=== PATIENT | female | born 1955 | race Caucasian/White ===

== ENCOUNTER 2016-07-08 14:57 | Inpatient (IN) | payer BC ==
[~2016-07-08] VITALS: Ht 163.2 cm; Wt 102.5 kg
[2016-07-19] MEDS ORDERED: MULTCAP2 PO (12:14)
[2016-07-19] MEDS ORDERED: CYAN1TAB24 PO (12:14)
[2016-07-19] MEDS ORDERED: CALC600T10 PO (12:14)
[2016-07-19] MEDS ORDERED: GELA600C (12:14)
[2016-07-19] MEDS ORDERED: VALA500T PO (12:14)
[2016-07-19] MEDS ORDERED: CELE100C PO (12:14)
[2016-07-19] MEDS ORDERED: SUPETAB20 PO (12:14)
[2016-07-19] MEDS ORDERED: LUTE25CA PO (12:14)
[2016-07-19] MEDS ORDERED: OMEGCAP19 PO (12:14)
[2016-07-29] MEDS ORDERED: INSULIN HUMAN REGULAR 1,000 UNITS/10 ML VIAL SQ PRN (05:30)
[2016-07-29] MEDS: CHLORHEXIDINE GLUCONATE 4% SOLN 120 ML BTL TOPICAL SCH (05:30)
[2016-07-29] MEDS ORDERED: LACTATED RINGER'S 1000 ML IV PRN (05:30)
[2016-07-29] MEDS ORDERED: CHLORHEXIDINE GLUCONATE 2 % 1 PACK (2 CLOTHS) TOPICAL PRN (05:30)
[2016-07-29] MEDS ORDERED: SODIUM CHLORID 0.9% 500 ML IV PRN (05:30)
[2016-07-29] MEDS ORDERED: ceFAZolin 2 GM PREMIX 50 ML IV SCH (05:30)
[2016-07-29] MEDS ORDERED: POVIDONE IODINE 5% (ANTISEPSIS KIT) 4 APPLICATIONS EACH NARE PRN (05:30)
[2016-07-29] MEDS ORDERED: METOPROLOL TARTRATE 25 MG TAB PO PRN (05:30)
[2016-07-29 05:55] VITALS: BP 119/63; PULSE 84; RESP 18; TEMP 98; O2SAT 96
[2016-07-29] MEDS ORDERED: GENTAMICIN SULFATE 80 MG/2 ML VIAL ONE (06:10)
[2016-07-29] MEDS ORDERED: fentaNYL CITRATE 250 MCG/5 ML AMP ONE (06:43)
[2016-07-29] MEDS ORDERED: ACETAMINOPHEN 1000 MG/100 ML VIAL IV ONE (06:43)
[2016-07-29] MEDS ORDERED: MIDAZOLAM HCL 2 MG/2 ML VIAL ONE (06:43)
[2016-07-29] MEDS ORDERED: FAMOTIDINE 20 MG/2 ML VIAL ONE (06:43)
[2016-07-29] MEDS ORDERED: TRANEXAMIC ACID IV SCH ×3 (07:00→13:00)
[2016-07-29] MEDS ORDERED: SODIUM CHLORIDE 0.9% IV SCH ×3 (07:00→13:00)
[2016-07-29] MEDS ORDERED: EXPAREL PERI-ARTICULAR INJECTION (TOTAL VOL. 60 ML) P-ARTICULR SCH ×2 (07:00)
[2016-07-29] MEDS ORDERED: TRANEXAMIC ACID INJ 1,000 MG/10 ML AMP IV ONE (07:43)
[2016-07-29] MEDS ORDERED: BUPIVACAINE LIPOSOME PF 1.3% 20 ML VIAL INFIL ONE (07:43)
[2016-07-29] MEDS ORDERED: ONDANSETRON HCL 4 MG/2 ML VIAL IV PUSH ONE (09:37)
[2016-07-29] MEDS ORDERED: PHENYLEPH/NS 1000 MCG/10 ML SYR IV ONE (09:37)
[2016-07-29] MEDS ORDERED: PROPOFOL 200 MG/20 ML AMP IV ONE (09:37)
[2016-07-29] MEDS ORDERED: ePHEDrine/NS 25 MG/5 ML SYR IV ONE (09:37)
[2016-07-29] MEDS ORDERED: LACTATED RINGER'S 1000 ML INJ 1,000 ML IV ONE (09:38)
[2016-07-29] MEDS ORDERED: MORPHINE SULFATE 8 MG/ML INJ IV PUSH PRN (10:15)
[2016-07-29] MEDS ORDERED: Post-op Orders (for Pharmacy) MISC XX ONE (10:15)
[2016-07-29] MEDS ORDERED: BISACODYL 10 MG SUPP RECTAL PRN (10:15)
[2016-07-29] MEDS ORDERED: SODIUM CHLORIDE 0.9% FLUSH 5 ML FLUSH IVF PRN (10:15)
[2016-07-29] MEDS: LACTATED RINGER'S 1000 ML INJ 1,000 ML IV SCH ×2 (10:15→22:34)
[2016-07-29] MEDS ORDERED: ONDANSETRON HCL 4 MG/2 ML VIAL IVP PRN (10:15)
[2016-07-29] MEDS ORDERED: ACETAMINOPHEN/HYDROcodone 325 MG/7.5 MG TAB PO PRN (10:15)
[2016-07-29] MEDS ORDERED: MAGNESIUM HYDROXIDE SUSP 30 ML CUP PO PRN (10:15)
[2016-07-29] MEDS ORDERED: ZOLPIDEM TARTRATE 5 MG TAB PO PRN (10:15)
[2016-07-29] MEDS ORDERED: DO NOT ADM ANY ANTICOAGULANT DRUGS PRN (10:20)
--- NOTE | 2016-07-29 11:41 | MP ---
cc: Dionne SAUL. DATE OF SURGERY 07/29/2016 PREOPERATIVE DIAGNOSIS Primary osteoarthritis right hip. POSTOPERATIVE DIAGNOSIS Primary osteoarthritis right hip. OPERATION PERFORMED Right total hip arthroplasty with Aristes prosthesis. SURGEON Luz Saul MD ASSESSMENT Malick Lin CSFA ANESTHESIA Spinal with supplemental local with Exparel INDICATIONS AND FINDINGS This 61-year-old woman has had right hip pain at least for the past three years with progressive worsening of pain to the point that she can only walk short distances. She has groin pain radiating into the knee with increased pain when walking and difficulty ascending and descending stairs. She has difficulty abducting the hip. She has difficulty with position changes. Treatment has included analgesics, anti-inflammatory agents, activity modification, exercise, intraarticular corticosteroids, physical therapy and ambulatory aids without any benefit. Physical findings showed limited range of motion with significantly antalgic gait and tenderness on motion. Imaging studies showed advanced arthritis in the right hip with loss of articular cartilage to subchondral bone with degenerative changes with osteophytes particularly in the acetabulum. Operative findings showed severe osteoarthritis in the hip with loss of articular cartilage to exposed subchondral bone on both sides of the joint. There were small osteophytes. PROSTHESIS USED Francoise prosthesis. The acetabular component was a Tritanium Hemisphere Cluster Cup size 48-mm outer diameter with a 0-degree polyethylene insert of X3 polyethylene, 32-mm inner diameter. The femoral component was an Accolade II size 4 x 127 degrees with a Biolox Delta head size 32-mm outer diameter, -4-mm neck length. PROCEDURE The patient was brought to the clean air operating suite and a spinal anesthetic was administered. She was positioned in a lateral position on the [facility] lateral positioner with an axillary roll under the left side and the right hip up. The right hip was then prepped with alcohol, Hibiclens and Chloraprep and draped in the usual manner with the hip draped free. An appropriate time-out procedure was carried out. The patient received prophylactic antibiotics in the form of Ancef 2 grams at the appropriate interval preoperatively and also received tranexamic acid preoperatively to assist in hemostasis. The hip incision was marked. Local anesthesia was administered into this with Exparel. An incision was then made starting at about 18 cm centered over the posterior superior greater trochanter. The incision was deepened through subcutaneous tissues to the fascia lyn and gluteus fascia which was incised in line with its fibers in the skin incision. Hemostasis was carefully achieved throughout the procedure with electrocautery. A Charnley retractor was placed with wound towels. The hip was then internally rotated. The external rotators were released off the greater trochanter and reflected off the capsule which was then incised with a posteriorly based flap. The hip was dislocated. The femoral neck was transected at the appropriate level with the oscillating saw. The femoral preparation was initiated using a box osteotome followed by canal-finding awl and curette and rongeur for initial preparation. The broaching was then started at size 0 and went in one size increments up to size 4. After size 4 had been seated, calcar planing was carried out. The hip was then repositioned. The acetabulum was exposed. Soft tissues were cleaned from the acetabulum. Reaming was started at size 41 and went in 1-mm increments up to size 48. At size 48 a trial prosthesis was impacted into place and seated appropriately. This was stabilized well. After this was removed, the size 48-mm outer diameter Tritanium Cluster Cup was impacted into place and seated appropriately after cleaning the acetabulum. A single dome screw was placed after pre-drilling and sounding. The liner with 0-degree liner was then inserted and impacted into place. A trial reduction was carried out with a -4-mm neck length. This gave good motion and no pistoning with excellent stability. The leg lengths appeared to be relatively appropriate. This was then removed and a trial reduction was carried out with the size 0. This did not allow for adequate extension, therefore this was removed. The broach was impacted slightly more and further calcar planing was carried out. This was then removed. The medullary canal was cleaned with pulse lavage. Local anesthesia was introduced throughout the hip. The size 4 x 127-degree Accolade II stem was then impacted into place and seated appropriately. A trial reduction was again carried out with a -4 which showed excellent stability, appropriate leg length, excellent motion with no pistoning. The Biolox Delta head was then placed onto the cleaned and dried trunnion. When this was seated appropriately, the hip was reduced. The range of motion was excellent. The stability was excellent. There was no pistoning. The leg lengths appeared to be appropriate. Wound closure then commenced after the remainder of the Exparel was injected throughout the hip. The external rotators and capsule were reapproximated to the femur with transosseous #1 Vicryl sutures using a Krackow technique on the soft tissues. The sciatic nerve was identified and protected throughout the procedure. The fascia lyn and gluteus fascia were repaired with #1 Vicryl interrupted [id number] sutures. The subcutaneous tissues were closed with 2-0 Vicryl interrupted simple sutures with buried knots. The skin was closed with continuous subcuticular closure of 4-0 Monocryl. The wound was dressed with Steri-Strips followed by dry dressing, ABD pad and Medipore compression dressing. The patient was transferred from the operating room to the recovery room in satisfactory condition having tolerated the procedure well. COUNTS Correct. SPECIMENS None. ESTIMATED BLOOD LOSS 250 mL. MD LILY Diego/RICK /10:28 AM /11:22 AM
--- NOTE | 2016-07-29 11:45 | RADRPT ---
EXAM DATE/TIME: 07/29/2016 11:55 [place] COMPARISON: No previous studies available for comparison. INDICATIONS : Post-op right hip replacement. MEDICAL HISTORY : None. SURGICAL HISTORY : Right hip replacement. ENCOUNTER: Initial ACUITY: 1 day PAIN SCORE: 0/10 LOCATION: Right Hip FINDINGS: Total hip arthroplasty is in place. The femoral and acetabular components appear intact. There are no signs of loosening or fracture. IMPRESSION: Intact total hip prosthesis for technique. Ludin Villarreal MD on July 29, 2016 at 11:43 Board Certified Radiologist. This report was verified electronically.
[2016-07-29] MEDS: KETOROLAC TROMETHAMINE 30 MG/ML (IVP) VIAL IVP SCH ×2 (12:30→18:01)
[2016-07-29 14:28] VITALS: BP 118/58; PULSE 82; RESP 16; TEMP 95.7; O2SAT 99
[2016-07-29] MEDS: ACETAMINOPHEN/HYDROcodone 325 MG/7.5 MG TAB PO PRN ×2 (15:10→22:24)
--- NOTE | 2016-07-29 16:01 | PD.CONS ---
[facility] By [facility] De La [facility] Reason for Consult Medical management Primary Care Physician Cherry Eaton M.D. Diagnoses: History of Present Illness Patient is a very pleasant 61-year-old female with known history of arthritis, history of breast cancer was admitted under orthopedic service and underwent right total hip arthroplasty. Patient has been having right hip pain for the past. Now worsening and increasing difficulty ambulating which prompted consult and scheduled his operation. 12-lead EKG reviewed as an outpatient reviewed in chart -normal. Patient is seen postop day 0 and is already up in the chair very motivated with physical therapy. Voiding spontaneously denies any pain on exam right now. Review of Systems Constitutional: DENIES: Diaphoretic episodes, Fatigue, Fever, Weight gain, Weight loss, Chills, Dizziness, Change in appetite, Night Sweats Endocrine: DENIES: Abnorml menstrual pattern, Heat/cold intolerance, Polydipsia , Polyuria, Polyphagia Eyes: DENIES: Blurred vision, Diplopia, Eye inflammation, Eye pain, Vision loss , Photosensitivity, Double Vision Ears, nose, mouth, throat: DENIES: Tinnitus, Hearing loss, Vertigo, Nasal discharge, Oral lesions, Throat pain, Hoarseness, Ear Pain, Running Nose, Epistaxis, Sinus Pain, Toothache, Odynophagia Respiratory: DENIES: Apneas, Cough, Snoring, Wheezing, Hemoptysis, Sputum production, Shortness of breath Cardiovascular: DENIES: Chest pain, Palpitations, Syncope, Dyspnea on Exertion , PND, Lower Extremity Edema, Orthopnea, Claudication Gastrointestinal: DENIES: Abdominal pain, Black stools, Bloody stools, Constipation, Diarrhea, Nausea, Vomiting, Difficulty Swallowing, Anorexia Genitourinary: DENIES: Abnormal vaginal bleeding, Dysmenorrhea, Dyspareunia, Sexual dysfunction, Urinary frequency, Urinary incontinence, Urgency, Hematuria , Dysuria, Nocturia, Vaginal discharge Musculoskeletal: COMPLAINS OF: Joint pain (right hip pain resolved for admission) Integumentary: DENIES: Abnormal pigmentation, Pruritus, Rash, Nail changes, Breast masses, Breast skin changes, Nipple discharge Hematologic/lymphatic: DENIES: Bruising, Lymphadenopathy Immunologic/allergic: DENIES: Eczema, Urticaria Neurologic: DENIES: Abnormal gait, Headache, Localized weakness, Paresthesias, Seizures, Speech Problems, Tremor, Poor Balance Psychiatric: DENIES: Anxiety, Confusion, Mood changes, Depression, Hallucinations, Agitation, Suicidal Ideation, Homicidal Ideation, Delusions Past Family Social History Allergies: Coded Allergies: Bee Sting (Verified Allergy, Severe, SWELLING, 07/29/16) Past Medical History History of recurrent herpes infection triggered by stress and takes Valtrex when necessary History of osteoarthritis History of breast cancer status post surgery status post mastectomy at 41-year- old followed by chemotherapy at 41 years of age No history of hypertension, diabetes, COPD Past Surgical History Status post right mastectomy Reported Medications Celebrex for osteoarthritis, Valtrex Currently in-house on Aspirin 81 mg twice a day Colace, Os-Elieser, multivitamins Active Ordered Medications See EMR Family History Noncontributory Social History History of smoking quit 30 years ago very occasional alcohol no history of substance abuse Physical Exam Vital Signs Vital Signs Date Time Temp Pulse Resp B/P Pulse Ox O2 Delivery O2 Flow Rate FiO2 07/29/16 14:28 95.7 82 16 118/58 99 07/29/16 13:30 97.3 71 14 121/59 99 Room Air 07/29/16 13:15 66 14 94/56 99 Room Air 07/29/16 13:00 69 14 110/64 99 Nasal Cannula 2 07/29/16 12:45 97.3 71 14 110/60 99 Nasal Cannula 2 07/29/16 12:30 66 14 106/55 99 Nasal Cannula 2 07/29/16 12:15 62 14 109/80 99 Nasal Cannula 2 07/29/16 12:00 96.3 57 14 102/63 99 Nasal Cannula 2 07/29/16 11:45 57 14 94/48 99 Nasal Cannula 2 07/29/16 11:30 53 14 105/66 99 Nasal Cannula 2 07/29/16 11:15 55 14 109/55 99 Nasal Cannula 2 07/29/16 11:00 96.5 58 14 108/65 99 Nasal Cannula 2 07/29/16 10:45 60 15 104/62 99 Nasal Cannula 2 07/29/16 10:30 67 15 102/63 99 Nasal Cannula 3 07/29/16 10:17 96.7 78 15 161/56 99 Nasal Cannula 3 07/29/16 05:55 98.0 84 18 119/63 96 Physical Exam GENERAL: in no apparent distress. SKIN: No rashes, ecchymoses or lesions. Cool and dry. HEAD: Atraumatic. Normocephalic. No temporal or scalp tenderness. EYES: Pupils equal round and reactive. Extraocular motions intact. No scleral icterus. No injection or drainage. ENT: Nose without bleeding, Throat without erythema, tonsillar hypertrophy or exudate. Airway patent. NECK: Trachea midline. No JVD or lymphadenopathy. Supple, nontender, no meningeal signs. CARDIOVASCULAR: Regular rate and rhythm without murmurs, gallops, or rubs. RESPIRATORY: Clear to auscultation. Breath sounds equal bilaterally. No wheezes , rales, or rhonchi. GASTROINTESTINAL: Abdomen soft, non-tender, No guarding. MUSCULOSKELETAL: Right hip with post op dressing in place swelling or tenderness moves all extremities spontaneously NEUROLOGICAL: Awake and alert. Cranial nerves II through XII intact. Motor and sensory grossly within normal limits. Five out of 5 muscle strength in all muscle groups. Normal speech. Laboratory Laboratory Tests Test 07/29/16 05:45 Blood Type A NEGATIVE Antibody Screen NEGATIVE Blood Bank Comment Assessment and Plan Assessment and Plan 61-year-old female presenting with chronic right hip pain worsening over time with difficulty ambulation Status post right total hip arthroplasty postop day 0 Dr. De La Cruz following. PT daily. prn pain meds History of osteoarthritis continue on Os-Elieser multivitamins. Celebrex. History of recurrent herpes infection on Valtrex when necessary. History of breast cancer. Advise patient to get annual mammogram Aspirin 81 mg twice a day for DVT prophylaxis Discharge planning patient prefers to go home with outpatient/home physical therapy.- case management consulted. Thank you for this consult we'll follow patient in-house C with you. Discussed with patient and mother at bedside Discussed Condition With Patient and mother at bedside Peggy Soares MD Jul 29, 2016 16:01
[2016-07-29 17:58] VITALS: BP 113/65; PULSE 86; RESP 16; TEMP 95.8; O2SAT 99
[2016-07-29 19:00] VITALS: BP 110/72; PULSE 113; RESP 15; TEMP 98.6; O2SAT 98
[2016-07-29 20:40] VITALS: O2SAT 97
[2016-07-29] MEDS: SODIUM CHLORIDE 0.9% FLUSH 5 ML FLUSH IVF SCH (21:00)
[2016-07-30] VITALS (8 sets, daily range): BP systolic 97–126; BP diastolic 54–64; PULSE 90–110; RESP 16–18; TEMP 97.1–99.8; O2SAT 95–99
[2016-07-30] MEDS: KETOROLAC TROMETHAMINE 30 MG/ML (IVP) VIAL IVP SCH ×4 (01:49→17:35)
[2016-07-30] MEDS: CHLORHEXIDINE GLUCONATE 4% SOLN 120 ML BTL TOPICAL SCH ×2 (05:30→20:44)
--- NOTE | 2016-07-30 07:22 | PD.ORT.PN ---
Subjective Post Op Day #: 1 Subjective Remarks She has pain in the hip with weightbearing. She is doing well, but is apprehensive about going home today. Distance Walked 45 feet twice. Objective Vitals Vital Signs Date Time Temp Pulse Resp B/P Pulse Ox O2 Delivery O2 Flow Rate FiO2 07/30/16 04:00 98.6 103 16 107/64 98 07/30/16 00:47 99.8 105 16 126/64 96 07/29/16 20:40 97 21 07/29/16 19:00 98.6 113 15 110/72 98 07/29/16 17:58 95.8 86 16 113/65 99 07/29/16 14:28 95.7 82 16 118/58 99 07/29/16 13:30 97.3 71 14 121/59 99 Room Air 07/29/16 13:15 66 14 94/56 99 Room Air 07/29/16 13:00 69 14 110/64 99 Nasal Cannula 2 07/29/16 12:45 97.3 71 14 110/60 99 Nasal Cannula 2 07/29/16 12:30 66 14 106/55 99 Nasal Cannula 2 07/29/16 12:15 62 14 109/80 99 Nasal Cannula 2 07/29/16 12:00 96.3 57 14 102/63 99 Nasal Cannula 2 07/29/16 11:45 57 14 94/48 99 Nasal Cannula 2 07/29/16 11:30 53 14 105/66 99 Nasal Cannula 2 07/29/16 11:15 55 14 109/55 99 Nasal Cannula 2 07/29/16 11:00 96.5 58 14 108/65 99 Nasal Cannula 2 07/29/16 10:45 60 15 104/62 99 Nasal Cannula 2 07/29/16 10:30 67 15 102/63 99 Nasal Cannula 3 07/29/16 10:17 96.7 78 15 161/56 99 Nasal Cannula 3 I/O 07/29/16 07/29/16 07/29/16 07/30/16 07/30/16 07/30/16 07:00 15:00 23:00 07:00 15:00 23:00 Intake Total 2886 ml 480 ml 480 ml Output Total 2200 ml Balance 686 ml 480 ml 480 ml Intake Oral 510 ml 480 ml 480 ml IV Total 376 ml Other 2000 ml Output Urine Total 1950 ml Estimated Blood Loss 250 ml # Voids 1 3 3 3 # Bowel Movements 0 0 Imaging Hip x-ray looks good. Objective Remarks She is OOB in the chair. The neurovascular status is intact. Assessment & Plan Ortho Post Op Day #: 1 Problem List: (1) Status post total hip replacement, right Plan: Continue postop care and PT. Assessment and Plan Condition: Good. Orthopaedically stable. DVT prophylaxis: TEDs, sequentials, ASA 81 mg BID for 1 month. Discharge plans: Home with [facility]. Has appointment. Rx: [place] 7.5/325. Luz De La Cruz MD (Charles) Jul 30, 2016 07:22
[2016-07-30] MEDS ORDERED: ASPI81TA11 PO (07:46)
[2016-07-30] MEDS ORDERED: HYDR-3580 PO (07:46)
--- NOTE | 2016-07-30 07:48 | HHI.FF ---
Face to Face Verification Diagnosis: (1) Status post total hip replacement, right Physical Therapy Gait training Hip: Total hip, Protocol: Right, Posterior hip precautions, Progress to weight bearing Canvas Knee Splint: When in bed & 2 pillows btw thighs (2 months.) Right LE Weight Bearing: WB as tolerated Right LE Range of Motion: Active ROM Nursing Nursing: Dressing changes Dressing Changes: Daily dressing change, Coverderm/Primapore Additional Instructions Remove steristrips on postop day 14. I have seen patient Mariely Omer on 07/30/16. My clinical findings support the need for the requested home health care services because: Ltd mobility - disease progression Limited ability to care for self High risk of falls I certify that my clinical findings support that this patient is homebound because: Post-op weakness Unsteady gait/balance Unsafe to leave home unassisted Luz De La Cruz MD (Charles) Jul 30, 2016 07:48
[2016-07-30] MEDS: VITAMIN B CMPLX/VITC/FOLIC AC CAP PO SCH (08:36)
[2016-07-30] MEDS: MULTIVITAMINS/MINERALS THERAPEUTIC TAB PO SCH (08:36)
[2016-07-30] MEDS: SODIUM CHLORIDE 0.9% FLUSH 5 ML FLUSH IVF SCH ×2 (08:36→20:43)
[2016-07-30] MEDS: valACYclovir HCL 500 MG TAB PO SCH (08:37)
[2016-07-30] MEDS: CYANOCOBALAMIN 1,000 MCG TAB PO SCH (08:37)
[2016-07-30] MEDS: CALCIUM/VITAMIN D 250 MG/125 U TAB PO SCH (08:37)
[2016-07-30] MEDS: ACETAMINOPHEN/HYDROcodone 325 MG/7.5 MG TAB PO PRN ×3 (08:38→18:11)
[2016-07-30] MEDS ORDERED: FATTY ACIDS OMEGA PO SCH (09:00)
[2016-07-30] MEDS ORDERED: OMEGA FA PO SCH (09:00)
[2016-07-30] MEDS ORDERED: LUTEIN ZEAXANTHIN PO SCH (09:00)
[2016-07-30 09:41] LABS: HEMATOCRIT 36.7 % (35.0-46.0); REVIEW FLAG FINAL
[2016-07-30] MEDS: ASPIRIN EC 81 MG TABEC PO SCH ×2 (10:05→20:43)
--- NOTE | 2016-07-30 11:03 | HHI.PR ---
Subjective Remarks very motivated with physical therapy- this 2 pm pain controlled this am Objective Vitals Vital Signs Date Time Temp Pulse Resp B/P Pulse Ox O2 Delivery O2 Flow Rate FiO2 07/30/16 08:00 98.7 110 18 113/60 96 07/30/16 04:00 98.6 103 16 107/64 98 07/30/16 00:47 99.8 105 16 126/64 96 07/29/16 20:40 97 21 07/29/16 19:00 98.6 113 15 110/72 98 07/29/16 17:58 95.8 86 16 113/65 99 07/29/16 14:28 95.7 82 16 118/58 99 07/29/16 13:30 97.3 71 14 121/59 99 Room Air 07/29/16 13:15 66 14 94/56 99 Room Air 07/29/16 13:00 69 14 110/64 99 Nasal Cannula 2 07/29/16 12:45 97.3 71 14 110/60 99 Nasal Cannula 2 07/29/16 12:30 66 14 106/55 99 Nasal Cannula 2 07/29/16 12:15 62 14 109/80 99 Nasal Cannula 2 07/29/16 12:00 96.3 57 14 102/63 99 Nasal Cannula 2 07/29/16 11:45 57 14 94/48 99 Nasal Cannula 2 07/29/16 11:30 53 14 105/66 99 Nasal Cannula 2 07/29/16 11:15 55 14 109/55 99 Nasal Cannula 2 I/O 07/29/16 07/29/16 07/29/16 07/30/16 07/30/16 07/30/16 07:00 15:00 23:00 07:00 15:00 23:00 Intake Total 2886 ml 480 ml 480 ml Output Total 2200 ml Balance 686 ml 480 ml 480 ml Intake Oral 510 ml 480 ml 480 ml IV Total 376 ml Other 2000 ml Output Urine Total 1950 ml Estimated Blood Loss 250 ml # Voids 1 3 3 3 # Bowel Movements 0 0 Result Diagram: 07/30/16 0844 Objective Remarks awake and alert, NAD lungs clear regular rhythm abdomen soft, nontender right hip- post op dressing in place no calf tenderness Procedures 07/29- ORIF- right hip A/P Assessment and Plan 61-year-old female presenting with chronic right hip pain worsening over time with difficulty ambulation Status post right total hip arthroplasty - 07/29 Dr. De La Cruz following. PT daily. prn pain meds History of osteoarthritis continue on Os-Elieser multivitamins. Celebrex. History of recurrent herpes infection on Valtrex when necessary. History of breast cancer. Advise patient to get annual mammogram Aspirin 81 mg twice a day for DVT prophylaxis Discharge planning patient prefers to go home with outpatient/home physical therapy.- case management consulted. d/w patient Peggy Soares MD Jul 30, 2016 11:03
[2016-07-30] MEDS: LACTATED RINGER'S 1000 ML INJ 1,000 ML IV SCH ×2 (11:04→20:44)
[2016-07-30] MEDS: DOCUSATE SODIUM 100 MG CAP PO SCH (20:43)
[2016-07-31] MEDS: KETOROLAC TROMETHAMINE 30 MG/ML (IVP) VIAL IVP SCH ×2 (00:18→04:47)
[2016-07-31] MEDS: ACETAMINOPHEN/HYDROcodone 325 MG/7.5 MG TAB PO PRN ×2 (00:20→08:26)
[2016-07-31 00:25] VITALS: BP 117/58; PULSE 102; RESP 17; TEMP 99.4; O2SAT 98
--- NOTE | 2016-07-31 06:43 | PD.ORT.PN ---
Subjective Post Op Day #: 2 Subjective Remarks She has pain in the hip with weightbearing. She is doing well. Distance Walked 100 feet with PT. Objective Vitals Vital Signs Date Time Temp Pulse Resp B/P Pulse Ox O2 Delivery O2 Flow Rate FiO2 07/31/16 00:25 99.4 102 17 117/58 98 07/30/16 20:05 98.1 99 16 108/54 99 07/30/16 18:07 97 21 07/30/16 16:21 97.7 94 18 105/64 97 07/30/16 12:00 97.1 90 18 97/56 95 07/30/16 08:02 96 21 07/30/16 08:00 98.7 110 18 113/60 96 I/O 07/30/16 07/30/16 07/30/16 07/31/16 07/31/16 07/31/16 07:00 15:00 23:00 07:00 15:00 23:00 Intake Total 480 ml 720 ml 240 ml 120 ml Balance 480 ml 720 ml 240 ml 120 ml Intake Oral 480 ml 720 ml 240 ml 120 ml # Voids 3 4 2 3 # Bowel Movements 0 0 0 0 Result Diagram: 07/30/16 0844 Imaging Hip x-ray looks good. Objective Remarks She is resting comfortably, supine in bed. The neurovascular status is intact. The dressing is dry and intact. Assessment & Plan Ortho Post Op Day #: 2 Problem List: (1) Status post total hip replacement, right Plan: Continue postop care and PT. Assessment and Plan Condition: Good. Orthopaedically stable. DVT prophylaxis: TEDs, sequentials, ASA 81 mg BID for 1 month. Discharge plans: Home with [facility]. Has appointment. Rx: [place] 7.5/325. Luz De La Cruz MD (Charles) Jul 31, 2016 06:43
[2016-07-31 08:00] VITALS: BP 115/52; PULSE 105; RESP 18; TEMP 98.9; O2SAT 96
[2016-07-31 08:08] LABS: HEMATOCRIT 34.3 % (35.0-46.0); REVIEW FLAG FINAL
[2016-07-31] MEDS: MULTIVITAMINS/MINERALS THERAPEUTIC TAB PO SCH (08:26)
[2016-07-31] MEDS: valACYclovir HCL 500 MG TAB PO SCH (08:26)
[2016-07-31] MEDS: CYANOCOBALAMIN 1,000 MCG TAB PO SCH (08:26)
[2016-07-31] MEDS: VITAMIN B CMPLX/VITC/FOLIC AC CAP PO SCH (08:26)
[2016-07-31] MEDS: DOCUSATE SODIUM 100 MG CAP PO SCH (08:26)
[2016-07-31] MEDS: CALCIUM/VITAMIN D 250 MG/125 U TAB PO SCH (08:27)
[2016-07-31] MEDS: ASPIRIN EC 81 MG TABEC PO SCH (08:36)
[2016-07-31] MEDS ORDERED: CELECOXIB 100 MG CAP PO SCH (09:00)
[2016-07-31] MEDS: SODIUM CHLORIDE 0.9% FLUSH 5 ML FLUSH IVF SCH (09:00)
--- NOTE | 2016-07-31 10:13 | HHI.PR ---
Subjective Remarks pain improved- up and ambulating with a walker very motivated Objective Vitals Vital Signs Date Time Temp Pulse Resp B/P Pulse Ox O2 Delivery O2 Flow Rate FiO2 07/31/16 08:25 Room Air 07/31/16 08:00 98.9 105 18 115/52 96 07/31/16 00:25 99.4 102 17 117/58 98 07/30/16 20:05 98.1 99 16 108/54 99 07/30/16 18:07 97 21 07/30/16 16:21 97.7 94 18 105/64 97 07/30/16 12:00 97.1 90 18 97/56 95 I/O 07/30/16 07/30/16 07/30/16 07/31/16 07/31/16 07/31/16 07:00 15:00 23:00 07:00 15:00 23:00 Intake Total 480 ml 720 ml 240 ml 120 ml Balance 480 ml 720 ml 240 ml 120 ml Intake Oral 480 ml 720 ml 240 ml 120 ml # Voids 3 4 2 3 # Bowel Movements 0 0 0 0 Result Diagram: 07/31/16 0742 Objective Remarks awake and alert, NAD anicteric lungs clear regular rhythm abdomen soft, nontender right hip- post op dressing in place no calf tenderness Procedures 07/29- ORIF- right hip A/P Assessment and Plan 61-year-old female presenting with chronic right hip pain worsening over time with difficulty ambulation Status post right total hip arthroplasty - 07/29 Dr. De La Cruz following. PT daily. prn pain meds History of osteoarthritis continue on Os-Elieser multivitamins. Celebrex. History of recurrent herpes infection on Valtrex when necessary. History of breast cancer. Advise patient to get annual mammogram Aspirin 81 mg twice a day for DVT prophylaxis DC home today with home health FF up with Orthopedics as OP PCP ff up with Peggy Torres MD Jul 31, 2016 10:13
== END 2016-07-31 11:31 | disposition home health service (06) | DRG 470 ==
LOC: HSDI 07-29 05:07 → N06B 07-29 14:02
PROVIDERS: ADMIT Orthopaedic Surgery; ATTEND Orthopaedic Surgery
PROC: 0SR902Z Replacement of Right Hip Joint with Metal on Polyethylene Synthetic Substitute, Open Approach (ICD-10-PCS; principal; 2016-07-29 06:55)
DX: M16.11 Unilateral primary osteoarthritis, right hip (principal); K21.9 Gastro-esophageal reflux disease without esophagitis; M25.751 Osteophyte, right hip; Z68.38 Body mass index [BMI] 38.0-38.9, adult; E66.9 Obesity, unspecified; Z85.3 Personal history of malignant neoplasm of breast; Z87.891 Personal history of nicotine dependence; Z90.11 Acquired absence of right breast and nipple; Z91.030 Bee allergy status; Z92.21 Personal history of antineoplastic chemotherapy
CPT/HCPCS: 73502; 85014; 85018; 86850; 86900; 86901; 94150; C1776; C9290; J0131; J0690; J1580; J1885; J2250; J2370; J2405; J3010; J7120; L1830

== ENCOUNTER → 2016-07-19 | Outpatient (CLI) | payer BC ==
[~2016-07-19] MED LIST: ASPI81TA11 PO; CALC600T10 PO; CELE100C PO; CYAN1TAB24 PO; GELA600C; HYDR-3580 PO; LUTE25CA PO; MULTCAP2 PO; OMEGCAP19 PO; OMEP20TA39 PO; SUPETAB20 PO; TRAM50 PO; VALA500T PO
[2016-07-19 13:02] LABS: HEMATOCRIT 39.8 % (35.0-46.0); MEAN CELL VOLUME 98.8 FL (80.0-100.0); MEAN CORPUSCULAR HEMOGLOBIN 33.1 PG (27.0-34.0); MEAN CORPUSCULAR HGB CONC 33.5 % (32.0-36.0); PLATELET COUNT 186 TH/MM3 (150-450); RED BLOOD COUNT 4.03 MIL/MM3 (4.00-5.30); RED CELL DISTRIBUTION WIDTH 12.5 % (11.6-17.2); REVIEW FLAG FINAL
[2016-07-19 13:11] LABS: APTT (PATIENT) 27.1 SEC (24.3-30.1); INTERNATIONAL NORMALIZED RATIO 0.9 RATIO
[2016-07-19 13:16] LABS: BLOOD, URINE NEG (NEG); GLUCOSE,URINE NEG (NEG); KETONE, URINE NEG (NEG); NITRITE,URINE NEG (NEG); PH, URINE 6.5 (5.0-8.5); SQUAMOUS EPITHELIAL CELL URINE 1 /hpf (0-5); URINE COLOR LIGHT-YELLOW (YELLW/STRAW)
[2016-07-19 13:21] LABS: COMMENT (UR) CATH-CULT NOT IND; CULTURE IF INDICATED CATH CULTURE NOT IND
[2016-07-19 13:24] LABS: BICARBONATE 31.7 MEQ/L (21.0-32.0); POTASSIUM 4.4 MEQ/L (3.5-5.1)
--- NOTE | 2016-07-20 14:26 | EKG ---
Date Performed: 07/19/2016 Time Performed: 12:02:02 PTAGE: 61 years EKG: Sinus rhythm NORMAL ECG NO PREVIOUS TRACING DOCTOR: Rogers Tamayo Interpretating Date/Time 07/20/2016 14:24:02
== END ==
LOC: CPRE 11:20
PROVIDERS: ATTEND Orthopaedic Surgery
DX: Z01.810 Encounter for preprocedural cardiovascular examination (principal); Z01.812 Encounter for preprocedural laboratory examination; M16.11 Unilateral primary osteoarthritis, right hip; M79.609 Pain in unspecified limb
CPT/HCPCS: 36415; 80048; 81001; 85027; 85610; 85730; 93005

== ENCOUNTER 2017-12-20 16:43 | Observation (INO) ==
--- NOTE | 2017-12-20 16:58 | ED ---
HPI General Chief Complaint: Syncope Stated Complaint: Syncope Source: patient, family, EMS, RN notes reviewed and old records reviewed Mode of arrival: EMS Limitations: altered mental status History of Present Illness HPI narrative: 62-year-old female who was found down by her mother after a possible syncopal event. Patient was confused when she was found. She does not recall the event. She does not recall having any symptoms before the event. She denies any complaints now other than being emotional and not able to remember anything. History is significantly limited. Related Data Home Medications Medication Instructions Recorded Confirmed meloxicam 7.5 mg PO DAILY 12/21/17 12/21/17 Allergies Allergy/AdvReac Type Severity Reaction Status Date / Time bee venom protein (honey bee) Allergy Severe SWELLING Verified 12/20/17 17:11 Review of Systems ROS Unobtainable ROS Unobtainable: unobtainable due to mental status PMFSH History History Provided By: Patient (Bilateral mastectomy from breast cancer 20 years ago) Medical History Medical History Arthritis (Acute) Breast CA (Acute) Social History Social History Substance History: No History of Abuse Second Hand Smoke Exposure: No Smoking Status: Never smoker How Often Do You Have a Drink Containing Alcohol: Monthly or less Recent Travel in [facility] within the Last 8 Weeks: No Recent Out of Country Travel within the Last 8 Weeks: No Exam Narrative Exam Narrative: GENERAL: 62 y/o female in no apparent distress SKIN: Focused skin assessment warm/dry. HEAD: Atraumatic. Normocephalic. EYES: Pupils equal and round. No scleral icterus. No injection or drainage. ENT: No nasal bleeding or discharge. Mucous membranes pink and moist. NECK: Trachea midline. No JVD. CARDIOVASCULAR: Regular rate and rhythm. No murmur appreciated. RESPIRATORY: No accessory muscle use. Clear to auscultation. Breath sounds equal bilaterally. GASTROINTESTINAL: Abdomen soft, non-tender, nondistended. MUSCULOSKELETAL: No obvious deformities. No clubbing. No cyanosis. NEUROLOGICAL: Awake. Motor grossly within normal limits. Normal speech. Course Reevaluation(s) Reevaluation #1: Patient's mother has arrived and states that her daughter was carrying and cushions from outside and she left her for about a minute when she came back to that room she was unresponsive on the ground. She was like that for probably about 15 minutes but the ambulance team got there quickly she states. She states that she was not really talking to her any during this period but she would intermittently open her eyes. Consultations Consultation #1: dr royal agrees to admit, requests neurology consult Consultation #2: dr dunn states to check an mri with and without and an eeg and will follow Initial Documented Vital Signs Temperature 97.8 F 12/20/17 17:00 Pulse Rate 117 H 12/20/17 17:00 Respiratory Rate 18 12/20/17 17:00 Blood Pressure 142/78 H 12/20/17 17:00 Pulse Oximetry 97 12/20/17 17:00 Last Documented Vital Signs Temperature 97.3 F L 12/22/17 04:00 Pulse Rate 90 12/22/17 04:00 Respiratory Rate 18 12/22/17 04:00 Blood Pressure 104/57 L 12/22/17 04:00 Pulse Oximetry 94 L 12/22/17 04:00 Medical Decision Making MDM Narrative Medical decision making narrative: Will check blood work, imaging and patient will need admission for further workup of syncope with altered mental status afterwards Medical Screen Exam Complete: Yes Emergency Medical Condition: Yes Differential Diagnosis Differential Diagnosis: Anemia, vasovagal, intracranial, renal failure, PE Lab Data Lab results reviewed: Yes I reviewed the patient's lab results. Result diagrams: 12/20/17 17:10 12/20/17 17:10 Lab Results 12/20/17 12/20/17 12/20/17 Range/Units 13:29 16:46 17:10 CBC w Diff Auto diff final WBC 7.3 (4.0-11.0) th/mm3 RBC 3.97 L (4.00-5.30) mil/mm3 Hgb 13.6 (11.6-15.3) gm/dL Hct 39.0 (35.0-46.0) % MCV 98.4 (80.0-100.0) fL MCH 34.3 H (27.0-34.0) pg MCHC 34.8 (32.0-36.0) % RDW 12.5 (11.6-17.2) % Plt Count 210 (150-450) th/mm3 MPV 9.2 (7.0-11.0) fL Neut % (Auto) 66.1 (16.0-70.0) % Lymph % (Auto) 26.4 (9.0-44.0) % [place] % (Auto) 6.9 (0.0-8.0) % Eos % (Auto) 0.3 (0.0-4.0) % Baso % (Auto) 0.3 (0.0-2.0) % Neut # (Auto) 4.9 (1.8-7.7) th/mm3 Lymph # (Auto) 1.9 (1.0-4.8) th/mm3 [place] # (Auto) 0.5 (0.0-0.9) th/mm3 Eos # (Auto) 0.0 (0.0-0.4) th/mm3 Baso # (Auto) 0.0 (0.0-0.2) th/mm3 WBC Differential . Differential Comment . PT (9.8-11.6) sec INR Ratio APTT (24.3-30.1) sec D-Dimer Quant (PE/DVT) (0.00-0.50) mg/L FEU Sodium (136-145) meq/L Potassium (3.5-5.1) meq/L Chloride (98-107) meq/L Carbon Dioxide (21.0-32.0) meq/L Anion Gap (5-15) meq/L BUN (7-18) mg/dL Creatinine (0.50-1.00) mg/dL Estimated GFR (>89) mL/min POC Glucose 116 H (68-110) mg/dl Random Glucose (74-106) mg/dL Calcium (8.5-10.1) mg/dL Magnesium (1.5-2.5) mg/dL Total Bilirubin (0.2-1.0) mg/dL Direct Bilirubin (0.0-0.2) mg/dL Indirect Bilirubin (0.0-0.8) mg/dL AST (15-37) U/L ALT (10-53) U/L Alkaline Phosphatase (45-117) U/L Total Creatine Kinase (26-192) U/L CK-MB (CK-2) (0.5-3.6) ng/mL Troponin I (0.02-0.05) ng/mL Total Protein (6.4-8.2) g/dL Albumin (3.4-5.0) g/dL TSH (0.358-3.740) uIU/mL Urine Color Yellow (Yellw/Straw) Urine Clarity Clear (Clear) Urine pH 7.0 (5.0-8.5) Ur Specific [place] 1.020 (1.002-1.035) Urine Protein Negative (Neg-Trace) mg/dL Urine Glucose (UA) Negative (Negative) mg/dL Urine Ketones Negative (Negative) mg/dL Urine Occult Blood Negative (Negative) Urine Nitrate Negative (Negative) Urine Bilirubin Negative (Negative) Urine Urobilinogen 0.2 (Less than 2) mg/dL Ur Leukocyte Esterase Negative (Negative) Urine RBC 0-3 (0-3) /hpf Urine WBC 0-5 (0-5) /hpf Ur Squamous Epith Cells 0-5 (0-5) /hpf Micro UA Comment Culture not ind Ur Microscopic Review Microscopic reviewed Urine Culture Comments Culture not ind 12/20/17 12/20/17 12/20/17 Range/Units 17:10 17:10 18:35 CBC w Diff WBC (4.0-11.0) th/mm3 RBC (4.00-5.30) mil/mm3 Hgb (11.6-15.3) gm/dL Hct (35.0-46.0) % MCV (80.0-100.0) fL MCH (27.0-34.0) pg MCHC (32.0-36.0) % RDW (11.6-17.2) % Plt Count (150-450) th/mm3 MPV (7.0-11.0) fL Neut % (Auto) (16.0-70.0) % Lymph % (Auto) (9.0-44.0) % [place] % (Auto) (0.0-8.0) % Eos % (Auto) (0.0-4.0) % Baso % (Auto) (0.0-2.0) % Neut # (Auto) (1.8-7.7) th/mm3 Lymph # (Auto) (1.0-4.8) th/mm3 [place] # (Auto) (0.0-0.9) th/mm3 Eos # (Auto) (0.0-0.4) th/mm3 Baso # (Auto) (0.0-0.2) th/mm3 WBC Differential Differential Comment PT 10.0 (9.8-11.6) sec INR 1.0 Ratio APTT 23.6 L (24.3-30.1) sec D-Dimer Quant (PE/DVT) 1.06 H (0.00-0.50) mg/L FEU Sodium 139 (136-145) meq/L Potassium 4.4 (3.5-5.1) meq/L Chloride 106 (98-107) meq/L Carbon Dioxide 24.0 (21.0-32.0) meq/L Anion Gap 9 (5-15) meq/L BUN 15 (7-18) mg/dL Creatinine 0.69 (0.50-1.00) mg/dL Estimated GFR 86 L (>89) mL/min POC Glucose (68-110) mg/dl Random Glucose 127 H (74-106) mg/dL Calcium 8.7 (8.5-10.1) mg/dL Magnesium 1.9 (1.5-2.5) mg/dL Total Bilirubin 0.3 0.3 (0.2-1.0) mg/dL Direct Bilirubin 0.1 (0.0-0.2) mg/dL Indirect Bilirubin 0.2 (0.0-0.8) mg/dL AST 50 H 60 H (15-37) U/L ALT 32 37 (10-53) U/L Alkaline Phosphatase 75 75 (45-117) U/L Total Creatine Kinase 192 (26-192) U/L CK-MB (CK-2) Less than 1.0 (0.5-3.6) ng/mL Troponin I Less than 0.02 L (0.02-0.05) ng/mL Total Protein 6.8 6.8 (6.4-8.2) g/dL Albumin 3.4 3.4 (3.4-5.0) g/dL TSH 3.780 H (0.358-3.740) uIU/mL Urine Color (Yellw/Straw) Urine Clarity (Clear) Urine pH (5.0-8.5) Ur Specific [place] (1.002-1.035) Urine Protein (Neg-Trace) mg/dL Urine Glucose (UA) (Negative) mg/dL Urine Ketones (Negative) mg/dL Urine Occult Blood (Negative) Urine Nitrate (Negative) Urine Bilirubin (Negative) Urine Urobilinogen (Less than 2) mg/dL Ur Leukocyte Esterase (Negative) Urine RBC (0-3) /hpf Urine WBC (0-5) /hpf Ur Squamous Epith Cells (0-5) /hpf Micro UA Comment Ur Microscopic Review Urine Culture Comments Imaging Data Attestation: I personally reviewed and interpreted this imaging study as follows : Radiologist's impression: Chest CTA 12/20/17 00:00 CONCLUSION: 1. No evidence of pulmonary emboli. 2. 8-9 mm noncalcified pulmonary nodule in the right middle lobe. A six-month follow-up CT is recommended according to guidelines. 3. Cholelithiasis. Chest X-Ray 12/20/17 16:53 CONCLUSION: No acute cardiopulmonary disease. Head CT 12/20/17 16:53 CONCLUSION: 1. Negative noncontrast CT. Abdomen Ultrasound 12/21/17 00:00 CONCLUSION: 1. Cholelithiasis with numerous echogenic gallstones with no wall thickening or biliary obstruction. 2. Prominent liver with hepatic steatosis and simple appearing cysts. Carotid Doppler Study 12/21/17 00:00 CONCLUSION: 1. Right Internal Carotid Artery: Patent with no evidence of stenosis. 2. Left Internal Carotid Artery: Patent with no evidence of stenosis. Head MRI 12/21/17 00:00 CONCLUSION: 1. Negative MR Brain with and without contrast. Discharge Plan Discharge Disposition Patient Disposition: 30 Still Patient Discharge Condition Condition: Stable Discharge Details Diagnosis: Syncope Physicians Team ED Provider: Claudine Reece Primary Care Provider: Primary Care Kenna,Lluvia Attending Provider: Stan Harrell Other Providers: Yumi Dunn Status ED Status: Left Department Discharge Information Discharge Date/Time: 12/20/17 20:11
[2017-12-20] MEDS ORDERED: Sod Chloride 0.9% Inj 1,000 ML IV.CONT SCH (17:00)
--- NOTE | 2017-12-20 17:31 | CT ---
EXAM DATE: 12/20/2017 5:26 PM EDT AGE/SEX: 62 years / Female INDICATIONS: Syncope today CLINICAL DATA: This is the patient's initial encounter. Patient reports that signs and symptoms have been present for 1 day and indicates a pain score of 0/10. MEDICAL/SURGICAL HISTORY: None. None. RADIATION DOSE: 50.56 CTDI (mGy) COMPARISON: No prior exams available for comparison. TECHNIQUE: CT of the head without contrast. Using automated exposure control and adjustment of the mA and/or kV according to patient size, radiation dose was kept as low as reasonably achievable to ob tain optimal diagnostic quality images. DICOM format image data is available electronically for revi ew and comparison. FINDINGS: Cerebrum: The ventricles are normal for age. No evidence of midline shift, mass lesion, hemorrhage or acute infarction. No extraaxial fluid collections are seen. Posterior Fossa: The cerebellum and brainstem are intact. The 4th ventricle is midline. The cerebe llopontine angle is unremarkable. Extracranial: The visualized portion of the orbits is intact. Skull: The calvaria is intact. No evidence of skull fracture. CONCLUSION: 1. Negative noncontrast CT. Electronically signed by: Jagdeep Cain MD 12/20/2017 5:30 PM EDT
[2017-12-20 17:41] LABS: Baso % (Auto) 0.3 % (0.0-2.0); Eos % (Auto) 0.3 % (0.0-4.0); Hemoglobin 13.6 gm/dL (11.6-15.3); Lymph # (Auto) 1.9 th/mm3 (1.0-4.8); Lymph % (Auto) 26.4 % (9.0-44.0); Mean Corpuscular HGB Conc 34.8 % (32.0-36.0); Mean Corpuscular Hemoglobin 34.3 pg (27.0-34.0); Mean Corpuscular Volume 98.4 fL (80.0-100.0); Mean Platelet Volume 9.2 fL (7.0-11.0); Mono # (Auto) 0.5 th/mm3 (0.0-0.9); Mono % (Auto) 6.9 % (0.0-8.0); Neut # (Auto) 4.9 th/mm3 (1.8-7.7); Neut % (Auto) 66.1 % (16.0-70.0); Platelet Count 210 th/mm3 (150-450); Red Blood Count 3.97 mil/mm3 (4.00-5.30); Red Cell Distribution Width 12.5 % (11.6-17.2); White Blood Count 7.3 th/mm3 (4.0-11.0)
--- NOTE | 2017-12-20 17:43 | XR ---
EXAM DATE: 12/20/2017 5:41 PM EDT AGE/SEX: 62 years / Female INDICATIONS: . Syncope CLINICAL DATA: This is the patient's initial encounter. Patient reports that signs and symptoms have been present for 1 day and indicates a pain score of 0/10. MEDICAL/SURGICAL HISTORY: Carcinoma, breast. . Right hip replacement. Bilateral mastectomy. COMPARISON: No prior exams available for comparison. FINDINGS: PA and lateral views of the chest demonstrate the lungs to be symmetrically aerated without evidence of mass, infiltrate or effusion. The cardiomediastinal contours are unremarkable. Osseous structures are intact with mild scoliosis. There are multiple surgical clips and carlos in the right axilla. Th ere are overlying electrocardiogram leads. CONCLUSION: No acute cardiopulmonary disease. Electronically signed by: Jagdeep Cain MD 12/20/2017 5:42 PM EDT
[2017-12-20 17:50] LABS: Chloride 106 meq/L (98-107); Sodium 139 meq/L (136-145)
[2017-12-20 17:52] LABS: Potassium 4.4 meq/L (3.5-5.1)
[2017-12-20 17:53] LABS: Albumin 3.4 g/dL (3.4-5.0); Anion Gap 9 meq/L (5-15); Calcium 8.7 mg/dL (8.5-10.1); Glucose,Random 127 mg/dL (74-106); Magnesium 1.9 mg/dL (1.5-2.5)
[2017-12-20 17:54] LABS: Blood Urea Nitrogen 15 mg/dL (7-18)
[2017-12-20 17:56] LABS: Alanine Aminotransferase 32 U/L (10-53)
[2017-12-20 17:57] LABS: Aspartate Aminotransferase 50 U/L (15-37); Glomerular Filtration Rate 86 mL/min (>89)
[2017-12-20 17:58] LABS: Total Protein 6.8 g/dL (6.4-8.2)
[2017-12-20 17:59] LABS: Alkaline Phosphatase 75 U/L (45-117); Creatine Kinase 192 U/L (26-192)
[2017-12-20 18:49] LABS: Bilirubin,Urine Negative (Negative); Clarity,Urine Clear (Clear); Color,Urine Yellow (Yellw/Straw); Glucose,Urine (UA) Negative (Negative); Leukocyte Esterase,Urine Negative (Negative); Nitrite,Urine Negative (Negative); Urobilinogen,Urine 0.2 mg/dL (Less than 2)
[2017-12-20 19:01] LABS: RBC,Urine 0-3 /hpf (0-3); Squamous Epithelial Cell,Urine 0-5 /hpf (0-5); WBC,Urine 0-5 /hpf (0-5)
[2017-12-20 19:23] LABS: Activated Partial Thrombo Time 23.6 sec (24.3-30.1)
[2017-12-20] MEDS ORDERED: Bisacodyl 10 MG Supp RECTAL PRN (19:47)
[2017-12-20] MEDS ORDERED: Acetaminophen 325 MG Tablet PO PRN (19:47)
--- NOTE | 2017-12-20 20:02 | P.HP ---
History of Present Illness Service: [facility] Primary Care Physician: Sharri Chief Complaint: Syncopal episode History of Present Illness: 62-year-old white female patient was a history of approximately 1 year or so ago had right hip surgery history of breast cancer 20 years ago with bilateral mastectomy has had problems of myalgias to the right lower extremity and has been followed by Dr. Babin neurology MRI was done EMG was is actually done well on anti-inflammatory and she be going to physical therapy and the symptoms of the myalgia have resolved. Patient today was taking some stuff into her house she was going to sit on the coffee table however she slid off the coffee table and had a syncopal episode. There was no feeling of something happening, no dizziness no visual disturbance, did call her mom's name her mom was present at the time patient was confused and at this time still does not recall what happened, mother said that she did strike her back possibly the back of her head. Patient denies chest pain nausea and vomiting shortness of breath headache no pain on moving her neck does have some confusion as to what medication she takes at home believes it is an anti-inflammatory once a is on some madhav one time for her myalgias she was on gabapentin and Topamax she is no longer on those medicines. Patient will be admitted to observation for MRI of the brain will get neurology evaluation EEG as well. - Diagnosis (1) Syncope Review of Systems All other systems reviewed negative except as stated in HPI [facility] - History History Provided By: Patient (Bilateral mastectomy from breast cancer 20 years ago) - Medical History Medical History: Medical History (Last Updated 12/20/17 @ 18:44 by Chika Murray RN) Arthritis Breast CA - Tobacco History Tobacco Use In Past 30 Days: No Smoking Status: Former smoker - Alcohol History How Often Do You Have a Drink Containing Alcohol: Monthly or less - Substance Use History Substance History: No History of Abuse - Travel History Recent Travel in the [place] Within the Last 8 Weeks: No Recent Travel Out of the Country Within the Last 8 Weeks: No - Immunization History Tetanus Immunization: >5 Years Hx Influenza Vaccine This Season: No Medications and Allergies Active Medications: Active Medications Acetaminophen (Tylenol) 650 mg PO Q4H PRN PRN Reason: Temp > 100.4 Bisacodyl (Dulcolax Supp) 10 mg RECTAL DAILY PRN PRN Reason: SEVERE CONSITIPATION Sodium Chloride (Ns Inj) 1,000 mls @ 125 mls/hr IV.CONT .Q8H SHARON Stop: 12/21/17 00:59 Last Admin: 12/20/17 17:57 Dose: 125 mls/hr Sodium Chloride (1/2 Normal Saline Inj) 1,000 mls @ 75 mls/hr IV.CONT .[id number] SHARON Allergies Allergy/AdvReac Type Severity Reaction Status Date / Time bee venom protein (honey bee) Allergy Severe SWELLING Verified 12/20/17 17:11 Home Medications Medication Instructions Recorded Confirmed Type celecoxib [Celebrex] 0 mg PO DAILY 12/20/17 12/20/17 History Exam Vital signs: Vital Signs 12/20/17 17:00 12/20/17 17:15 12/20/17 17:58 Temperature 97.8 F Pulse Rate 117 H 102 H Respiratory Rate 18 Blood Pressure 142/78 H 111/61 Pulse Oximetry 97 95 98 12/20/17 18:37 12/20/17 18:41 Temperature Pulse Rate 95 H Respiratory Rate 18 Blood Pressure 132/68 Pulse Oximetry 96 96 Intake & Output 12/20/17 12/20/17 12/21/17 06:59 18:59 06:59 Weight 97.522 kg Narrative: GENERAL: SKIN: Warm and dry. HEAD: Atraumatic. Normocephalic. EYES: Pupils equal and round. No scleral icterus. No injection or drainage. ENT: No nasal bleeding or discharge. Mucous membranes pink and moist. NECK: Trachea midline. No JVD. CARDIOVASCULAR: Regular rate and rhythm. RESPIRATORY: No accessory muscle use. Clear to auscultation. Breath sounds equal bilaterally. GASTROINTESTINAL: Abdomen soft, non-tender, nondistended. Hepatic and splenic margins not palpable. MUSCULOSKELETAL: Extremities without clubbing, cyanosis, or edema. No obvious deformities. NEUROLOGICAL: Awake and alert. No obvious cranial nerve deficits. Motor grossly within normal limits. Five out of 5 muscle strength in the arms and legs. Normal speech. PSYCHIATRIC: Appropriate mood and affect; insight and judgment normal. Results - Labs CBC & Chem 7: 12/20/17 17:10 12/20/17 17:10 Labs: Laboratory Results - last 24 hr 12/20/17 12/20/17 12/20/17 13:29 16:46 17:10 CBC w Diff Auto diff final WBC 7.3 RBC 3.97 L Hgb 13.6 Hct 39.0 MCV 98.4 MCH 34.3 H MCHC 34.8 RDW 12.5 Plt Count 210 MPV 9.2 Neut % (Auto) 66.1 Lymph % (Auto) 26.4 [place] % (Auto) 6.9 Eos % (Auto) 0.3 Baso % (Auto) 0.3 Neut # (Auto) 4.9 Lymph # (Auto) 1.9 [place] # (Auto) 0.5 Eos # (Auto) 0.0 Baso # (Auto) 0.0 WBC Differential . Differential Comment . Sodium Potassium Chloride Carbon Dioxide Anion Gap BUN Creatinine Estimated GFR POC Glucose 116 H Random Glucose Calcium Magnesium Total Bilirubin AST ALT Alkaline Phosphatase Total Creatine Kinase CK-MB (CK-2) Troponin I Total Protein Albumin Urine Color Yellow Urine Clarity Clear Urine pH 7.0 Ur Specific [place] 1.020 Urine Protein Negative Urine Glucose (UA) Negative Urine Ketones Negative Urine Occult Blood Negative Urine Nitrate Negative Urine Bilirubin Negative Urine Urobilinogen 0.2 Ur Leukocyte Esterase Negative Urine RBC 0-3 Urine WBC 0-5 Ur Squamous Epith Cells 0-5 Micro UA Comment Culture not ind Ur Microscopic Review Microscopic reviewed Urine Culture Comments Culture not ind 12/20/17 17:10 CBC w Diff WBC RBC Hgb Hct MCV MCH MCHC RDW Plt Count MPV Neut % (Auto) Lymph % (Auto) [place] % (Auto) Eos % (Auto) Baso % (Auto) Neut # (Auto) Lymph # (Auto) [place] # (Auto) Eos # (Auto) Baso # (Auto) WBC Differential Differential Comment Sodium 139 Potassium 4.4 Chloride 106 Carbon Dioxide 24.0 Anion Gap 9 BUN 15 Creatinine 0.69 Estimated GFR 86 L POC Glucose Random Glucose 127 H Calcium 8.7 Magnesium 1.9 Total Bilirubin 0.3 AST 50 H ALT 32 Alkaline Phosphatase 75 Total Creatine Kinase 192 CK-MB (CK-2) Less than 1.0 Troponin I Less than 0.02 L Total Protein 6.8 Albumin 3.4 Urine Color Urine Clarity Urine pH Ur Specific [place] Urine Protein Urine Glucose (UA) Urine Ketones Urine Occult Blood Urine Nitrate Urine Bilirubin Urine Urobilinogen Ur Leukocyte Esterase Urine RBC Urine WBC Ur Squamous Epith Cells Micro UA Comment Ur Microscopic Review Urine Culture Comments - Imaging Impressions Chest X-Ray 12/20/17 16:53 CONCLUSION: No acute cardiopulmonary disease. Head CT 12/20/17 16:53 CONCLUSION: 1. Negative noncontrast CT. Caprini VTE Risk Assessment Caprini VTE Risk Assessment: No/Low Risk (score <= 1) Caprini Risk Assessment Model: Point Value = 1 Point Value = 2 Point Value = 3 Point Value = 5 Age 41-60 Minor surgery BMI > 25 kg/m2 Swollen legs Varicose veins or History of unexplained or recurrent spontaneous Oral contraceptives or hormone replacement Sepsis (< 1 month) Serious lung disease, including pneumonia (< 1 month) Abnormal pulmonary function Acute myocardial infarction Congestive heart failure (< 1 month) History of inflammatory bowel disease Medical patient at bed rest Age 61-74 Arthroscopic surgery Major open surgery (> 45 min) Laparoscopic surgery (> 45 min) Malignancy Confined to bed (> 72 hours) Immobilizing plaster cast Central venous access Age >= 75 History of VTE Family history of VTE Factor V Leiden Prothrombin [id number] Lupus anticoagulant Anticardiolipin antibodies Elevated serum homocysteine Heparin-induced thrombocytopenia Other congenital or acquired thrombophilia Stroke (< 1 month) Elective arthroplasty Hip, pelvis, or leg fracture Acute spinal cord injury (< 1 month) Prophylaxis Regimen: Total Risk Factor Score Risk Level Prophylaxis Regimen 0-1 Low Early ambulation 2 Moderate Order ONE of the following: *Sequential Compression Device (SCD) *Heparin 5000 units SQ BID 3-4 Higher Order ONE of the following medications: *Heparin 5000 units SQ TID *Enoxaparin/Lovenox 40 mg SQ daily (WT < 150 kg, CrCl > 30 mL/min) *Enoxaparin/Lovenox 30 mg SQ daily (WT < 150 kg, CrCl > 10-29 mL/min) *Enoxaparin/Lovenox 30 mg SQ BID (WT < 150 kg, CrCl > 30 mL/min) AND/OR *Sequential Compression Device (SCD) 5 or more Highest Order ONE of the following medications: *Heparin 5000 units SQ TID (Preferred with Epidurals) *Enoxaparin/Lovenox 40 mg SQ daily (WT < 150 kg, CrCl > 30 mL/min) *Enoxaparin/Lovenox 30 mg SQ daily (WT < 150 kg, CrCl > 10-29 mL/min) *Enoxaparin/Lovenox 30 mg SQ BID (WT < 150 kg, CrCl > 30 mL/min) AND *Sequential Compression Device (SCD) Assessment and Plan - Assessment (1) Syncope Code(s): R55 - Syncope and collapse Status: Acute Plan: Syncope episode today we will get MRI EEG neurology of the note of note patient did come from being outside to inside this may be an vasovagal perhaps some dehydration associated with this as patient states she was not drinking much water today. We will obtain a baseline TSH level along with a repeat eval LFT is 1 liver function was slightly elevated. - Plan Further plan is based on results of tests Code Status: Full Discussed Condition With: Discussed with patient and mother (1) Syncope Qualifiers: Syncope type: unspecified Qualified Code(s): R55 - Syncope and collapse
[2017-12-20 20:07] LABS: D-Dimer 1.06 mg/L FEU (0.00-0.50)
[2017-12-20 21:34] LABS: Albumin 3.4 g/dL (3.4-5.0)
[2017-12-20] MEDS: Sodium Chloride 0.45 % Inj 1,000 ML IV.CONT SCH (21:35)
[2017-12-20 21:38] LABS: Total Protein 6.8 g/dL (6.4-8.2)
[2017-12-20 21:45] LABS: Thyroid Stimulating Hormone 3.78 uIU/mL (0.358-3.740)
--- NOTE | 2017-12-20 21:54 | P.PNADD ---
Addendum to Inpatient Note Reason for Addendum: Additional Documentation (Patient had a d-dimer ordered by the ER in view of the new onset of syncope and the d-dimer was slightly positive and we have ordered a CTA scan to be done)
--- NOTE | 2017-12-20 22:46 | CT ---
EXAM DATE: 12/20/2017 10:37 PM EDT AGE/SEX: 62 years / Female INDICATIONS: Elevated D-Dimer, Syncopal episode. CLINICAL DATA: This is the patient's initial encounter. Patient reports that signs and symptoms have been present for 1 day and indicates a pain score of 0/10. MEDICAL/SURGICAL HISTORY: Carcinoma, breast. Mastectomy, bilateral. RADIATION DOSE: 12.38 CTDI (mGy) COMPARISON: No prior exams available for comparison. TECHNIQUE: Volumetric scanning was performed using a multi-row detector CT scanner during bolus infu amalia of 73 ml Omnipaque 350 (iohexol) nonionic water-soluble contrast as a single exam dose. The dulce a was post processed with a variety of visualization algorithms including full volume maximum intensi ty projection and sliding thin slab reformation. Using automated exposure control and adjustment of t he mA and/or kV according to patient size, radiation dose was kept as low as reasonably achievable to obtain optimal diagnostic quality images. DICOM format image data is available electronically for r eview and comparison. FINDINGS: Pulmonary Arteries: No filling defects are seen in the pulmonary arteries out to the subsegmental ve ssels. The left and right pulmonary arteries are normal in diameter. Lung: No infiltrates seen. There is an 8 to 9 mm noncalcified pulmonary nodule in the right middle l obe Effusion: None. Mediastinum: No evidence of mediastinal or hilar adenopathy. Other: The axilla is unremarkable. Bilateral breast implants are present. There is a benign cystic s tructure in the left lobe of liver. There are faintly calcified gallstones in the gallbladder. CONCLUSION: 1. No evidence of pulmonary emboli. 2. 8-9 mm noncalcified pulmonary nodule in the right middle lobe. A six-month follow-up CT is recomm ended according to guidelines. 3. Cholelithiasis. Electronically signed by: Jagdeep Cain MD 12/20/2017 10:45 PM EDT
[2017-12-21] MEDS: Sodium Chloride 0.45 % Inj 1,000 ML IV.CONT SCH ×2 (08:19→22:58)
[2017-12-21] MEDS ORDERED: Meloxicam 15 MG Tablet PO SCH (10:00)
--- NOTE | 2017-12-21 10:00 | P.PN ---
Subjective Interval history: Patient complaining of pain to back where she fell and wants to go back on her melaxacam will give 15mg now then back to 7.5mg,had positive d dimmer but CTA negative for PE did show nodule which we can follow up 6 months,await neuro and MRI brain as patient did have confusion post syncope also eeg pending. Physical Exam Vital signs: Vital Signs 12/20/17 17:00 12/20/17 17:15 12/20/17 17:58 Temperature 97.8 F Pulse Rate 117 H 102 H Respiratory Rate 18 Blood Pressure 142/78 H 111/61 Pulse Oximetry 97 95 98 12/20/17 18:37 12/20/17 18:41 12/20/17 20:00 Temperature 96.2 F L Pulse Rate 95 H 93 H Respiratory Rate 18 16 Blood Pressure 132/68 134/72 Pulse Oximetry 96 96 94 L 12/21/17 00:00 12/21/17 04:00 12/21/17 08:00 Temperature 97.1 F L 97.5 F L 96.5 F L Pulse Rate 94 H 93 H 75 Respiratory Rate 16 16 17 Blood Pressure 137/63 132/68 119/55 L Pulse Oximetry 94 L 95 95 Intake & Output 12/20/17 12/21/17 12/21/17 18:59 06:59 18:59 Intake Total 1000 / 1000 1000 / 1000 Balance 1000 / 1000 1000 / 1000 Weight 97.522 kg 97.8 kg Intake: IV 1000 / 1000 1000 / 1000 NS Inj 1,000 ML @ 125 mls/hr IV 1000 / 1000 .CONT .Q8H SHARON Rx#:[id number] 1/2 Normal Saline Inj 1,000 ML 1000 / 1000 @ 75 mls/hr IV.CONT .[id number] SHARON Rx#:[id number] Other: # Voids 3 Narrative: GENERAL: SKIN: Warm and dry. HEAD: Normocephalic. EYES: No scleral icterus. No injection or drainage. NECK: Supple, trachea midline. No JVD or lymphadenopathy. CARDIOVASCULAR: Regular rate and rhythm without murmurs, gallops, or rubs. RESPIRATORY: Breath sounds equal bilaterally. No accessory muscle use. GASTROINTESTINAL: Abdomen soft, non-tender, nondistended. MUSCULOSKELETAL: No cyanosis, or edema. BACK: Nontender without obvious deformity. No CVA tenderness. Results - Labs CBC & Chem 7: 12/20/17 17:10 12/20/17 17:10 Laboratory Results - last 24 hr 12/20/17 12/20/17 12/20/17 13:29 16:46 17:10 CBC w Diff Auto diff final WBC 7.3 RBC 3.97 L Hgb 13.6 Hct 39.0 MCV 98.4 MCH 34.3 H MCHC 34.8 RDW 12.5 Plt Count 210 MPV 9.2 Neut % (Auto) 66.1 Lymph % (Auto) 26.4 Bay % (Auto) 6.9 Eos % (Auto) 0.3 Baso % (Auto) 0.3 Neut # (Auto) 4.9 Lymph # (Auto) 1.9 Bay # (Auto) 0.5 Eos # (Auto) 0.0 Baso # (Auto) 0.0 WBC Differential . Differential Comment . PT INR APTT D-Dimer Quant (PE/DVT) Sodium Potassium Chloride Carbon Dioxide Anion Gap BUN Creatinine Estimated GFR POC Glucose 116 H Random Glucose Calcium Magnesium Total Bilirubin Direct Bilirubin Indirect Bilirubin AST ALT Alkaline Phosphatase Total Creatine Kinase CK-MB (CK-2) Troponin I Total Protein Albumin TSH Urine Color Yellow Urine Clarity Clear Urine pH 7.0 Ur Specific [place] 1.020 Urine Protein Negative Urine Glucose (UA) Negative Urine Ketones Negative Urine Occult Blood Negative Urine Nitrate Negative Urine Bilirubin Negative Urine Urobilinogen 0.2 Ur Leukocyte Esterase Negative Urine RBC 0-3 Urine WBC 0-5 Ur Squamous Epith Cells 0-5 Micro UA Comment Culture not ind Ur Microscopic Review Microscopic reviewed Urine Culture Comments Culture not ind 12/20/17 12/20/17 12/20/17 17:10 17:10 18:35 CBC w Diff WBC RBC Hgb Hct MCV MCH MCHC RDW Plt Count MPV Neut % (Auto) Lymph % (Auto) Bay % (Auto) Eos % (Auto) Baso % (Auto) Neut # (Auto) Lymph # (Auto) Bay # (Auto) Eos # (Auto) Baso # (Auto) WBC Differential Differential Comment PT 10.0 INR 1.0 APTT 23.6 L D-Dimer Quant (PE/DVT) 1.06 H Sodium 139 Potassium 4.4 Chloride 106 Carbon Dioxide 24.0 Anion Gap 9 BUN 15 Creatinine 0.69 Estimated GFR 86 L POC Glucose Random Glucose 127 H Calcium 8.7 Magnesium 1.9 Total Bilirubin 0.3 0.3 Direct Bilirubin 0.1 Indirect Bilirubin 0.2 AST 50 H 60 H ALT 32 37 Alkaline Phosphatase 75 75 Total Creatine Kinase 192 CK-MB (CK-2) Less than 1.0 Troponin I Less than 0.02 L Total Protein 6.8 6.8 Albumin 3.4 3.4 TSH 3.780 H Urine Color Urine Clarity Urine pH Ur Specific [place] Urine Protein Urine Glucose (UA) Urine Ketones Urine Occult Blood Urine Nitrate Urine Bilirubin Urine Urobilinogen Ur Leukocyte Esterase Urine RBC Urine WBC Ur Squamous Epith Cells Micro UA Comment Ur Microscopic Review Urine Culture Comments - Imaging Impressions Chest CTA 12/20/17 00:00 CONCLUSION: 1. No evidence of pulmonary emboli. 2. 8-9 mm noncalcified pulmonary nodule in the right middle lobe. A six-month follow-up CT is recommended according to guidelines. 3. Cholelithiasis. Chest X-Ray 12/20/17 16:53 CONCLUSION: No acute cardiopulmonary disease. Head CT 12/20/17 16:53 CONCLUSION: 1. Negative noncontrast CT. Assessment and Plan - Assessment (1) Syncope Code(s): R55 - Syncope and collapse Status: Acute Plan: Syncope episode today we will get MRI EEG neurology of the note of note patient did come from being outside to inside this may be an vasovagal perhaps some dehydration associated with this as patient states she was not drinking much water today. CTA negative . - Plan Further plan is based on results of tests (1) Syncope Qualifiers: Syncope type: unspecified Qualified Code(s): R55 - Syncope and collapse
--- NOTE | 2017-12-21 12:46 | ECG ---
Date Performed: 12/20/2017 Time Performed: 17:11:24 PTAGE: 62 years EKG: Sinus tachycardia ABNORMAL RHYTHM ECG Since PREVIOUS TRACING , no significant change noted PREVIOUS TRACIN07/19/2016 12.02 DOCTOR: Trey Loya Interpretating Date/Time 12/21/2017 12:45:04
[2017-12-21] MEDS ORDERED: Gadobutrol PF 10 MMOL/10 ML Vial (for RAD) IV.SIG ONE (16:19)
--- NOTE | 2017-12-21 16:42 | MR ---
EXAM DATE: 12/21/2017 4:32 PM EDT AGE/SEX: 62 years / Female INDICATIONS: . Syncopal episode. CLINICAL DATA: This is the patient's initial encounter. Patient reports that signs and symptoms have been present for 1 day and indicates a pain score of 0/10. MEDICAL/SURGICAL HISTORY: Chronic renal insufficiency. Mastectomy, bilateral. Hip replacement. COMPARISON: [facility], CT HEAD W/O CONTRAST, 12/20/2017. . TECHNIQUE: Multiplanar, multisequence examination of the brain was performed without and with 10cc ml Gadavist (gadobutrol) contrast as a single exam dose. FINDINGS: Cerebrum: The ventricles are normal for age. No evidence of midline shift, mass lesion, hemorrhage or acute infarction. No extraaxial fluid collections are seen. The pituitary gland and suprasellar cistern are normal in configuration. White Matter: No significant signal abnormalities are seen in the white matter. Posterior Fossa: The cerebellum and brainstem are intact. The 4th ventricle is midline. The cerebel lopontine angle is unremarkable. The cerebellar tonsils are normal in position. Diffusion Imaging: No focal areas of restricted diffusion are seen. No evidence of acute infarction . Extracranial: The visualized portions of the orbits and paranasal sinuses are unremarkable. Post Contrast: No abnormal areas of parenchymal or dural enhancement. No evidence of blood-brain ba rrier breakdown. CONCLUSION: 1. Negative MR Brain with and without contrast. Electronically signed by: Ronnell Cole MD 12/21/2017 4:40 PM EDT
--- NOTE | 2017-12-21 18:09 | MB ---
cc: Yumi Woodall MD DATE: 12/21/2017 REASON FOR CONSULTATION: Syncope. HISTORY OF PRESENT ILLNESS: This is a pleasant 62-year-old woman who had right hip surgery about a year ago, breast cancer 20 years ago, bilateral mastectomy, had some myalgia in right lower extremity, seen my partner, Dr. Babin. MRI done an EMG, placed on some anti-inflammatories and went to physical therapy. Myalgia had resolved. Apparently, yesterday she was in her usual state of health, was coming out of the car, carrying two patio cushions into the house when apparently she had a syncopal spell. It was not witnessed, except for after she had fallen, but apparently she could not remember anything that was going on and did not wake up until she was in the ambulance and even when she got here, she had trouble thinking and getting words out. She is back to baseline. She has never had anything like this before. She denies feeling dizzy or lightheaded prior to the event. There was no incontinence, tongue biting or shaking. PAST MEDICAL HISTORY: As stated. SOCIAL HISTORY: She is a former smoker, drinks rarely. No substance abuse. PHYSICAL EXAMINATION: VITAL SIGNS: Temperature 97.7, pulse 85, respiratory rate 16, blood pressure currently is 99/50, prior to that 119/55, and then on admission, she was 142/78. NECK: Supple. I do not appreciate any bruits. HEART: Regular. NEUROLOGIC: She is awake, alert. She is oriented, fluent. Pupils reactive. Visual edwards full. Face symmetrical. Tongue midline. Motor daniel no drift or leg lag. Cerebellar testing normal. DTRs are 1+. Sensory normal. Toes are downgoing. Gait: She has been ambulating back and forth to the bathroom without difficulty. LABORATORY DATA: Reviewed. D-dimer was 1.06. CT chest did not show a PE. Chemistries: GFR 86, glucose 127. AST 60, ALT 37. Cardiac enzymes are negative. TSH 3.780. Urine negative. IMAGING: CT head did not show anything acute. Chest x-ray was negative and as stated CT of the chest showed 8-9 mm noncalcified pulmonary nodule right middle lobe. Followup in [address] should be done. Gallbladder stones are noted as well, but no PE. ASSESSMENT AND PLAN: Syncope. Etiology at this point is unknown. Recommend getting an EEG and MRI of the brain with and without gadolinium. Given her history of breast cancer, I want to be a little more cautious. Also, we will get a carotid ultrasound. Watch her blood pressure to make sure she is not orthostatic. Maintain hydration. Also, she should maintain telemetry and should obtain an outpatient event monitor prolonged Holter. She can certainly follow up with her primary care in the office as well as with Dr. Babin for further input. She should not be driving until she is seen by Neurology. If her workup is negative, I anticipate she can be going home tomorrow. Continue current care. MD HUGH Childress/bobby , 03:35 PM , 03:43 PM
--- NOTE | 2017-12-21 20:04 | US ---
EXAM DATE: 12/21/2017 8:02 PM EDT AGE/SEX: 62 years / Female INDICATIONS: Syncope. CLINICAL DATA: This is the patient's initial encounter. Patient reports that signs and symptoms have been present for 1 day and indicates a pain score of 2/10. MEDICAL/SURGICAL HISTORY: Carcinoma, breast. . Right hip surgery. Bilateral mastectomy. COMPARISON: No prior exams available for comparison. VELOCITY PARAMETERS: ICA/CCA Ratio: Right 1.0 , Left 1.0 ICA: Right 97 cm/sec, Left 97 cm/sec CCA: Right 99 cm/sec, Left 99 cm/sec ECA: Right 96 cm/sec, Left 83 cm/sec Vertebral: Right 52 cm/sec antegrade, Left 44 cm/sec antegrade FINDINGS: Right Carotid: No significant plaque is visualized.The waveforms are within normal limits. Left Carotid: No significant plaque is visualized. The waveforms are within normal limits. Other: None. CONCLUSION: 1. Right Internal Carotid Artery: Patent with no evidence of stenosis. 2. Left Internal Carotid Artery: Patent with no evidence of stenosis. Electronically signed by: Jagdeep Cain MD 12/21/2017 8:03 PM EDT
--- NOTE | 2017-12-21 20:13 | US ---
EXAM DATE: 12/21/2017 8:08 PM EDT AGE/SEX: 62 years / Female INDICATIONS: Abdominal pain. Elevated liver function. CLINICAL DATA: This is the patient's initial encounter. Patient reports that signs and symptoms have been present for 1 day and indicates a pain score of 1/10. MEDICAL/SURGICAL HISTORY: . Breast cancer. . Right hip surgery. Bilateral mastectomy. COMPARISON: No prior exams available for comparison. MEASUREMENTS: Liver:__ 17.4 cm. Common Bile Duct:___ 4mm. Right Kidney:___11.4 x 5.3 x 4.7 cm. Left Kidney:___9.8 x 5.9 x 4.8 cm. Spleen:___10.8 cm. FINDINGS: Liver: The liver is prominent measuring up to 17.4 cm with diffuse increased echogenicity. There is a cyst in the left lobe of liver measuring 1.6 cm. There is no intrahepatic ductal dilatation or asci christie. Portal Vein: Hepatopedal flow seen in portal vein. Common Duct: No intraluminal mass or stone visualized. Gallbladder: Numerous echogenic gallstones are noted with areas of posterior shadowing. There is no wall thickening or para cholecystic fluid. Pancreas: The visualized portions are within normal limits Right Kidney: Normal echotexture and cortical thickness. No mass or hydronephrosis. Left Kidney: Normal echotexture and cortical thickness. No mass or hydronephrosis. Ascites: None Pleural Effusion: None Spleen: No focal lesion. Aorta: Non aneurysmal. IVC: Within normal limits Other: None. CONCLUSION: 1. Cholelithiasis with numerous echogenic gallstones with no wall thickening or biliary obstruction. 2. Prominent liver with hepatic steatosis and simple appearing cysts. Electronically signed by: Jagdeep Cain MD 12/21/2017 8:12 PM EDT
[2017-12-22 04:40] VITALS: RESP 18
[2017-12-22 08:54] VITALS: O2SAT 97
[2017-12-22] MEDS ORDERED: Meloxicam 7.5 MG Tablet PO SCH (09:00)
[2017-12-22 12:52] VITALS: BP 101/53; PULSE 85; TEMP 97
--- NOTE | 2017-12-22 13:13 | MG ---
cc: Tony Babin MD, PhD TEST NUMBER: [id number] TECHNIQUE: A 17-channel EEG. DESCRIPTION: The background rhythm reveals symmetrical alpha frequency of 8-10 Hz, amplitude 20 microvolts. No lateralizing features are identified and no epileptiform features are identified. During drowsiness, there is mild slowing in the theta range at 6 Hz. No epileptiform features are seen. There is occasional muscle artifact. Photic results in a normal driving response. INTERPRETATION: Normal electroencephalogram. Tony Babin MD, PhD WILDA/ashley , 01:01 PM , 01:05 PM
--- NOTE | 2017-12-22 13:51 | P.DS ---
Date of admission: 12/20/17 19:05 Primary care physician: No Primary Care Physician Dr. Springer Attending physician on discharge: Stan Harrell Anticipated date of discharge: 12/22/17 Brief History from admission: 62-year-old white female patient was a history of approximately 1 year or so ago had right hip surgery history of breast cancer 20 years ago with bilateral mastectomy has had problems of myalgias to the right lower extremity and has been followed by Dr. Babin neurology MRI was done EMG was is actually done well on anti-inflammatory and she be going to physical therapy and the symptoms of the myalgia have resolved. Patient today was taking some stuff into her house she was going to sit on the coffee table however she slid off the coffee table and had a syncopal episode. There was no feeling of something happening, no dizziness no visual disturbance, did call her mom's name her mom was present at the time patient was confused and at this time still does not recall what happened, mother said that she did strike her back possibly the back of her head. Patient denies chest pain nausea and vomiting shortness of breath headache no pain on moving her neck does have some confusion as to what medication she takes at home believes it is an anti-inflammatory once a is on some madhav one time for her myalgias she was on gabapentin and Topamax she is no longer on those medicines. Patient will be admitted to observation for MRI of the brain will get neurology evaluation EEG as well. Patient update on day of discharge: doing well will have event monitor as out patient and review 2d echo discussed with patient PCP DS: Diagnosis - Discharge Diagnosis (1) Syncope Status: Acute DS: Summary Hospital Course: Patient was admitted with syncopal episode work up included temporary office assistant,MRI brain CT head,carotid ultrasound ekg,patient had slight positive d dimmer and CTA was negative for PE but did show nodule needs follow up CT 6 months also had elevation AST abdominal ultrasound showed gallstones and steatosis liver , all labs normal and urine normal except TSH slight elevation 3.78 . EEG was normal . patient will have 2d echo and out patient event monitor ,i have discussed with patient PCP. - Time Spent with Patient Total time spent providing and/or coordinating discharge services: Greater than 30 minutes - Quality: VTE Deep Vein Thrombosis/Pulmonary Embolism Present on Admission: No Exam Vital signs: Vital Signs 12/21/17 16:00 12/21/17 20:00 12/22/17 00:00 Temperature 98.0 F 97.6 F 98.4 F Pulse Rate 88 75 78 Respiratory Rate 16 22 16 Blood Pressure 103/53 L 111/53 L 100/52 L Pulse Oximetry 96 99 94 L 12/22/17 04:00 12/22/17 08:00 12/22/17 12:00 Temperature 97.3 F L 97.0 F L Pulse Rate 90 86 85 Respiratory Rate 18 18 18 Blood Pressure 104/57 L 110/59 L 101/53 L Pulse Oximetry 94 L 97 97 Intake & Output 12/21/17 12/22/17 12/22/17 18:59 06:59 18:59 Intake Total 1480 / 1480 1240 / 1240 1000 / 1000 Balance 1480 / 1480 1240 / 1240 1000 / 1000 Weight 97.9 kg Intake: IV 1000 / 1000 1000 / 1000 1000 / 1000 1/2 Normal Saline Inj 1,000 ML 1000 / 1000 1000 / 1000 1000 / 1000 @ 75 mls/hr IV.CONT .[id number] SHARON Rx#:[id number] Oral 480 / 480 240 / 240 Other: # Voids 3 3 # Bowel Movements 0 Narrative: GENERAL: SKIN: Warm and dry. HEAD: Normocephalic. EYES: No scleral icterus. No injection or drainage. NECK: Supple, trachea midline. No JVD or lymphadenopathy. CARDIOVASCULAR: Regular rate and rhythm without murmurs, gallops, or rubs. RESPIRATORY: Breath sounds equal bilaterally. No accessory muscle use. GASTROINTESTINAL: Abdomen soft, non-tender, nondistended. MUSCULOSKELETAL: No cyanosis, or edema. BACK: Nontender without obvious deformity. No CVA tenderness. Results Procedures completed during hospitalization: CTA thorax,CT brain,MRI brain,EEG 2d echo,abdominal ultrasound ,carotid ultrasound Completed studies during hospitalization: MRI brain,ct head CTA thorax,carotid and abdominal ultrasound 2d echo EEG Pending studies at discharge: 2d echo result - Impressions ITS Impressions Chest CTA 12/20/17 00:00 CONCLUSION: 1. No evidence of pulmonary emboli. 2. 8-9 mm noncalcified pulmonary nodule in the right middle lobe. A six-month follow-up CT is recommended according to guidelines. 3. Cholelithiasis. Chest X-Ray 12/20/17 16:53 CONCLUSION: No acute cardiopulmonary disease. Head CT 12/20/17 16:53 CONCLUSION: 1. Negative noncontrast CT. Abdomen Ultrasound 12/21/17 00:00 CONCLUSION: 1. Cholelithiasis with numerous echogenic gallstones with no wall thickening or biliary obstruction. 2. Prominent liver with hepatic steatosis and simple appearing cysts. Carotid Doppler Study 12/21/17 00:00 CONCLUSION: 1. Right Internal Carotid Artery: Patent with no evidence of stenosis. 2. Left Internal Carotid Artery: Patent with no evidence of stenosis. Head MRI 12/21/17 00:00 CONCLUSION: 1. Negative MR Brain with and without contrast. Discharge Plan - Discharge Disposition Patient Disposition: Discharge Home - Discharge Condition Condition: Stable - Discharge Order Discharge Orders: Discharge Order (Routine); Ordered 12/22/17 Ordered By: Stan Harrell - Discharge Details Anticipated Discharge Date: 12/22/17 - Physicians Team Primary Care Provider: Primary Care Kenna,Lluvia Attending Provider: Stan Harrell Other Providers: Yumi Woodall MD
[2017-12-22] MEDS: Sodium Chloride 0.45 % Inj 1,000 ML IV.CONT SCH (14:32)
--- NOTE | 2017-12-22 17:49 | ECHRPT ---
Indication: CVA/TIA CONCLUSIONS The left ventricular systolic function is normal with an estimated ejection fraction in the range of 60-65%. Trace mitral valve regurgitation. Trace aortic valve regurgitation. There is trace tricuspid valve regurgitation. Mild pulmonary valve regurgitation. BP: / HR: Rhythm: MEASUREMENTS (Male / Female) Normal Values Technical Quality: 2D ECHO LV Diastolic Diameter PLAX 4.0 cm 4.2 - 5.9 / 3.9 - 5.3 cm LV Systolic Diameter PLAX 2.8 cm IVS Diastolic Thickness 1.0 cm 0.6 - 1.0 / 0.6 - 0.9 cm LVPW Diastolic Thickness 1.0 cm 0.6 - 1.0 / 0.6 - 0.9 cm LV Relative Wall Thickness 0.5 RV Internal Dim ED PLAX 2.5 cm LVOT Diameter 1.9 cm LA Systolic Diameter LX 3.3 cm 3.0 - 4.0 / 2.7 - 3.8 cm LV Ejection Fraction MOD 4C 65.7 % LV Ejection Fraction 4C AL 66.4 % M-MODE Aortic Root Diameter MM 1.7 cm LA Systolic Diameter MM 3.3 cm LA Ao Ratio MM 1.9 AV Cusp Separation MM 1.9 cm DOPPLER AV Peak Velocity 102.0 cm/s AV Peak Gradient 4.2 mmHg AI Peak Velocity 239.0 cm/s AI Peak Gradient 22.8 mmHg AI Pressure Half Time 1633.5 ms LVOT Peak Velocity 87.9 cm/s LVOT Peak Gradient 3.1 mmHg AV Area Cont Eq pk 2.4 cm MV Area PHT 3.3 cm Mitral E Point Velocity 72.6 cm/s Mitral A Point Velocity 70.6 cm/s Mitral E to A Ratio 1.0 LV E' Lateral Velocity 13.6 cm/s Mitral E to LV E' Lateral Ratio 5.3 LV E' Septal Velocity 7.6 cm/s Mitral E to LV E' Septal Ratio 9.6 TR Peak Velocity 206.0 cm/s TR Peak Gradient 17.0 mmHg Right Atrial Pressure 10.0 mmHg Pulmonary Artery Systolic Pressu 27.0 mmHg Right Ventricular Systolic Press 27.0 mmHg PV Peak Velocity 103.0 cm/s PV Peak Gradient 4.2 mmHg FINDINGS LEFT VENTRICLE Normal left ventricular size. Wall thickness is normal. The left ventricular systolic function is normal with an estimated ejection fraction in the range of 60-65%. No regional wall motion abnormalities are present. RIGHT VENTRICLE Normal right ventricular size and systolic function. LEFT ATRIUM The left atrial size is normal. RIGHT ATRIUM The right atrial size is normal. ATRIAL SEPTUM Normal atrial septal thickness without atrial level shunting by limited color doppler interrogation. AORTA The aortic root and proximal ascending aorta are normal in size on limited imaging. MITRAL VALVE Structurally normal mitral valve. Trace mitral valve regurgitation. No mitral valve stenosis. AORTIC VALVE Trileaflet aortic valve. Trace aortic valve regurgitation. No aortic valve stenosis. TRICUSPID VALVE Structurally normal tricuspid valve. There is trace tricuspid valve regurgitation. Normal estimated pulmonary pressures. PULMONARY VALVE Mild pulmonary valve regurgitation. VESSELS The inferior vena cava is normal in size. PERICARDIUM No pericardial effusion. Edu Cam DO (Electronically Signed) Final Date:22 December 2017 17:49
== END 2017-12-22 14:00 | disposition home or self-care (01) ==
LOC: PHED 16:43 → PHEDA 16:43 → PH3 19:59
PROVIDERS: ADMIT Internal Medicine; ATTEND Internal Medicine
DX: R91.1 Solitary pulmonary nodule; R55 Syncope and collapse; R41.0 Disorientation, unspecified; Z85.3 Personal history of malignant neoplasm of breast; I37.1 Nonrheumatic pulmonary valve insufficiency; R94.2 Abnormal results of pulmonary function studies; K76.0 Fatty (change of) liver, not elsewhere classified; K80.20 Calculus of gallbladder without cholecystitis without obstruction; M19.90 Unspecified osteoarthritis, unspecified site; Z87.891 Personal history of nicotine dependence